=== PATIENT | female | born 1975 | race Caucasian/White ===

== ENCOUNTER 2022-02-25 13:16 | Outpatient (CLI) | payer OTHER, SELFPAY ==
[2022-02-25 20:16] LABS: Chloride* 105 mmol/L (96-114); Potassium* 4.9 mmol/L (3.6-5.1); Sodium* 139 mmol/L (135-149)
[2022-02-25 20:19] LABS: Creatinine* 0.8 mg/dL (0.5-1.5); Estimated Glomerular Filt Rate 93 ml/min
[2022-02-25 20:20] LABS: Blood Urea Nitrogen* 13 mg/dL (5-24); Calcium* 9.5 mg/dL (8.4-10.6); Carbon Dioxide* 24 mmol/L (20-32); Glucose* 100 mg/dL (60-115)
[2022-02-25 20:31] LABS: C Reactive Protein* < 0.5 mg/dL (0.5-1.0)
== END 2022-02-25 13:17 | disposition home or self-care (01) ==
PROVIDERS: PCP Emergency Medicine; Visit Provider Emergency Medicine
DX: R22.43 Localized swelling, mass and lump, lower limb, bilateral (principal); M25.561 Pain in right knee; M25.562 Pain in left knee
CPT/HCPCS: 80048; 84550; 86140; 86200; 86617; 86618